=== PATIENT | female | born 1980 | race Caucasian/White ===

== ENCOUNTER → 2018-03-27 | Outpatient (CLI) | payer OTHER ==
[2016-05-04 16:40] VITALS: BP 119/82
[~2018-03-27] MED LIST: ASPI1TAB31 PO; DULO30CA2 PO; DULO60CA6 PO; GABA-585 PO; GABA600T2 PO; HYDR-2758 PO; HYDR-2762 PO; HYDR12.53 PO; LIDO700A4 TP; METH-38 PO; MULT1TAB52 PO; Methocarbamol PO; OMEG1CAP27 PO; OXYC-323 PO; Oxycodone Hcl/Acetaminophen PO; SUMA100T4 PO
--- NOTE | 2018-03-27 14:48 | RAD ---
Limited abdominal ultrasound 03/27/2018 INDICATION: Periumbilical abdominal pain. COMPARISON STUDY: None FINDINGS: Ultrasound evaluation of the abdomen was performed. Static images submitted to PACS. The pancreas is partially visualized. Visualized portions of the pancreas demonstrate no gross abnormality. The gallbladder demonstrates no evidence of wall thickening, stones, or sludge. No pericholecystic fluid is seen. Visualized portions of liver unremarkable. Common bile duct is nondilated measuring 2 mm in diameter. The liver is normal in size measuring 15.4 cm longitudinally. Right kidney is unremarkable in appearance measuring approximately 11.5 cm in length. Focal sonographic evaluation of the abdominal midline is unremarkable. IMPRESSION: Unremarkable limited abdominal ultrasound as described Electronically signed by: Carlos Kearns MD (03/27/2018 2:45 PM) [id number]
== END | disposition home or self-care (01) ==
LOC: US 08:24
PROVIDERS: ATTEND Family Medicine
DX: R10.33 Periumbilical pain (principal)
CPT/HCPCS: 76705